=== PATIENT | male | born 1950 | race Caucasian/White ===

== ENCOUNTER 2024-04-20 12:49 | Day surgery (SDC) | payer MEDICARE ==
[2024-04-19 14:01] LABS: BASOPHILS % (AUTO) 0.5 % (0-1); EOSINOPHILS # (AUTO) 0.1 X10'3 (0-0.9); EOSINOPHILS % (AUTO) 1.5 % (0-6); LYMPHOCYTES # (AUTO) 1.3 X10'3 (1.1-4.8); LYMPHOCYTES % (AUTO) 16.7 % (21-51); MEAN CORPUSCULAR HEMOGLOBIN 31.4 PG (27.0-31.0); MEAN CORPUSCULAR HGB CONC 33.6 g/dL (33.0-36.5); MEAN CORPUSCULAR VOLUME 93.7 FL (78-98); MEAN PLATELET VOLUME 8.6 FL (7.4-10.4); MONOCYTES # (AUTO) 0.8 X10'3 (0-0.9); MONOCYTES % (AUTO) 9.6 % (2-12); NEUTROPHILS # (AUTO) 5.7 X10'3 (1.8-7.7); NEUTROPHILS % (AUTO) 71.7 % (42-75); PRE OP HEMATOCRIT 41.4 % (42.0-52.0); PRE OP HEMOGLOBIN 13.9 g/dL (14.0-17.9); PRE OP PLATELET COUNT 209 X10'3 (140-440); PRE OP WHITE BLOOD COUNT 7.9 10'3 (4.8-10.8); RED BLOOD COUNT 4.42 X10'6 (4.70-6.10); RED CELL DISTRIBUTION WIDTH 13.7 % (11.5-14.5)
[2024-04-19 14:17] LABS: ALBUMIN 3.8 G/DL (3.4-5.0); ALBUMIN/GLOBULIN RATIO 1.1 (1.1-1.5); ALKALINE PHOSPHATASE 43 IU/L (46-116); BLOOD UREA NITROGEN 18 MG/DL (7-18); BUN/CREATININE RATIO 19.4 (10.0-20.0); CALCIUM 9.2 MG/DL (8.5-10.1); CHLORIDE 106 MMOL/L (99-107); CREATININE 0.93 MG/DL (0.60-1.10); PRE OP ALT 18 U/L (30-65); PRE OP ANION GAP 6 (8-16); PRE OP AST 18 U/L (10-37); PRE OP BILIRUB, TOTAL 0.6 MG/DL (0.0-1.0); PRE OP GLUCOSE 98 MG/DL (70-104); PRE OP POTASSIUM 3.9 MMOL/L (3.4-5.1); PRE OP SODIUM 140 MMOL/L (135-145); TOTAL CARBON DIOXIDE 28.3 MMOL/L (24-32); TOTAL PROTEIN 7.2 G/DL (6.4-8.2); eGFR 80 ML/MIN
[2024-04-20] VITALS (8 sets, daily range): BP systolic 139–164; BP diastolic 81–90; PULSE 66–87; RESP 11–18; TEMP 98.2; O2SAT 92–98
[~2024-04-20] VITALS: Ht 177.8 cm; Wt 85.5 kg
[~2024-04-20 12:49] MED LIST: ASPI81TA52 PO; BUPIVAcaine/PF 2.5mg/ml (0.25%) 10ml vial ONE; FENO160T PO; FLO0.4C PO; HYDR25TA4 PO; LIDOcaine 1% 30ml preserv. free vial ONE; LOSA25TA41 PO
[2024-04-20] MEDS: ringers solution, lacted 1,000 ML IV SCH (14:05)
[2024-04-20] MEDS: clindamycin-Cleocin 900mg/D5W 50 ML IV ONE (14:06)
[2024-04-20] MEDS: famotidine 20mg tablet PO ONE (14:06)
[2024-04-20] MEDS: INDOCYANINE GREEN 25 MG/10 ML VIAL IV ONE (15:11)
[2024-04-20] MEDS ORDERED: sevoflurane 250ml liquid IH ONE (18:32)
[2024-04-20] MEDS ORDERED: morphine 2 MG/ML inj. syringe IV PRN (18:35)
[2024-04-20] MEDS ORDERED: meperidine/PF 25mg/ml syringe IV PRN ×3 (18:35)
[2024-04-20] MEDS ORDERED: acetaminophen 1,000mg/100ml IV 100 ML IV ONE (18:35)
[2024-04-20] MEDS ORDERED: labetalol 20mg/4ml (5mg/ml) syringe IV PRN (18:35)
[2024-04-20] MEDS ORDERED: ringers solution, lacted 1,000 ML IV SCH (18:35)
[2024-04-20] MEDS ORDERED: ondansetron/PF 4mg/2ml inj IV PRN (18:35)
[2024-04-20] MEDS ORDERED: hydrALAZINE 20mg/ml inj. IV PRN (18:35)
[2024-04-20] MEDS ORDERED: proCHLORperazine 10 MG/2 ml inj IV PRN (18:35)
[2024-04-20] MEDS ORDERED: morphine 4 MG/ML inj SYRINge IV PRN (18:35)
[2024-04-20] MEDS ORDERED: fentaNYL /PF 50mcg/ml 5ml ampule ONE (18:38)
[2024-04-20] MEDS ORDERED: midazolam 1 mg/ML 2ml injection ONE (18:38)
[2024-04-20] MEDS ORDERED: propofol inj 20 ML IV ONE (19:00)
[2024-04-20] MEDS ORDERED: rocuronium 10mg/ml inj IV ONE (19:00)
[2024-04-20] MEDS ORDERED: dexamethasone sod phosphate 4mg/ml inj. ONE (19:00)
[2024-04-20] MEDS ORDERED: LIDOcaine 2% (20mg/ml) 5ml vial ONE (19:00)
[2024-04-20] MEDS ORDERED: ondansetron/PF 4mg/2ml inj ONE (19:00)
[2024-04-20] MEDS: BUPIVAcaine 2.5mg/ml inj 50ml vial (contains preservative) SQ ONE (19:05)
[2024-04-20] MEDS ORDERED: glycopyrrolate 0.2mg/ml inj ONE (19:31)
[2024-04-20] MEDS ORDERED: neostigmine methylsulfate 1 MG/ML 10ml vial ONE (19:31)
[2024-04-20] MEDS: oxyCODONE/APAP 5-325mg tablet PO PRN (20:14)
== END 2024-04-20 20:32 | disposition home or self-care (01) ==
LOC: PAS 12:49
PROVIDERS: ATTEND Surgery
DX: K80.10 Calculus of gallbladder with chronic cholecystitis without obstruction (principal); I10 Essential (primary) hypertension; E78.5 Hyperlipidemia, unspecified; Z79.82 Long term (current) use of aspirin; Z79.899 Other long term (current) drug therapy; Z90.49 Acquired absence of other specified parts of digestive tract; Z88.0 Allergy status to penicillin; Z82.3 Family history of stroke; Z82.49 Family history of ischemic heart disease and other diseases of the circulatory system
CPT/HCPCS: 36415; 47563; 80053; 82948; 85025; A4215; A4618; A7000; J1100; J2001; J2250; J2405; J2704; J2710; J3010; J3490; J7030; J7120; Z7506; Z7508; Z7512; Z7610

== ENCOUNTER 2024-09-05 05:29 | Day surgery (SDC) | payer MEDICARE ==
[~2024-09-05] VITALS: Ht 177.8 cm; Wt 88.0 kg
[2024-09-05] VITALS (14 sets, daily range): BP systolic 122–143; BP diastolic 68–82; PULSE 60–71; RESP 11–16; TEMP 98.1; O2SAT 95–99
[~2024-09-05 05:29] MED LIST changes: -ASPI81TA52 PO; -BUPIVAcaine/PF 2.5mg/ml (0.25%) 10ml vial ONE; +CHOL10005 PO; -LIDOcaine 1% 30ml preserv. free vial ONE
[2024-09-05] MEDS ORDERED: famotidine 20mg tablet PO ONE (05:30)
[2024-09-05] MEDS ORDERED: ringers solution, lacted 1,000 ML IV SCH ×2 (05:30→08:15)
[2024-09-05] MEDS: VANCOMYCIN 1,500MG inj. 1,500 MG in normal saline 500ml IV soln 300 ML IV ONE (06:00)
[2024-09-05] MEDS ORDERED: bacitracin 15gm ointment TP ONE (06:40)
[2024-09-05] MEDS ORDERED: BUPIVAcaine 2.5mg/ml inj 50ml vial (contains preservative) ONE (06:42)
[2024-09-05] MEDS ORDERED: sevoflurane 250ml liquid IH ONE (07:08)
[2024-09-05 07:09] LABS: BASOPHILS % (AUTO) 0.7 % (0-1); EOSINOPHILS # (AUTO) 0.2 X10'3 (0-0.9); EOSINOPHILS % (AUTO) 3.7 % (0-6); LYMPHOCYTES # (AUTO) 1.2 X10'3 (1.1-4.8); LYMPHOCYTES % (AUTO) 21.1 % (21-51); MEAN CORPUSCULAR HEMOGLOBIN 32.1 PG (27.0-31.0); MEAN CORPUSCULAR HGB CONC 33.9 g/dL (33.0-36.5); MEAN CORPUSCULAR VOLUME 94.8 FL (78-98); MEAN PLATELET VOLUME 9.3 FL (7.4-10.4); MONOCYTES # (AUTO) 0.7 X10'3 (0-0.9); MONOCYTES % (AUTO) 12.2 % (2-12); NEUTROPHILS # (AUTO) 3.5 X10'3 (1.8-7.7); NEUTROPHILS % (AUTO) 62.3 % (42-75); PRE OP HEMATOCRIT 41.9 % (42.0-52.0); PRE OP HEMOGLOBIN 14.2 g/dL (14.0-17.9); PRE OP PLATELET COUNT 189 X10'3 (140-440); PRE OP WHITE BLOOD COUNT 5.6 10'3 (4.8-10.8); RED BLOOD COUNT 4.42 X10'6 (4.70-6.10)
[2024-09-05 07:10] LABS: ALBUMIN 3.6 G/DL (3.4-5.0); ALBUMIN/GLOBULIN RATIO 1.1 (1.1-1.5); ALKALINE PHOSPHATASE 42 IU/L (46-116); BLOOD UREA NITROGEN 20 MG/DL (7-18); BUN/CREATININE RATIO 18.7 (10.0-20.0); CALCIUM 8.9 MG/DL (8.5-10.1); CHLORIDE 107 MMOL/L (99-107); CREATININE 1.07 MG/DL (0.60-1.10); PRE OP ALT 20 U/L (30-65); PRE OP ANION GAP 8 (8-16); PRE OP AST 18 U/L (10-37); PRE OP BILIRUB, TOTAL 0.6 MG/DL (0.0-1.0); PRE OP GLUCOSE 106 MG/DL (70-104); PRE OP POTASSIUM 3.8 MMOL/L (3.4-5.1); PRE OP SODIUM 140 MMOL/L (135-145); TOTAL CARBON DIOXIDE 24.6 MMOL/L (24-32); TOTAL PROTEIN 6.8 G/DL (6.4-8.2); eCRCL 63 ML/MIN; eGFR 68 ML/MIN
[2024-09-05] MEDS ORDERED: BUPIVACAINE liposomal/PF 13.3 MG/ML vial IM ONE (07:12)
[2024-09-05] MEDS ORDERED: BUPIVAcaine/PF 5 mg/ml 10ml ONE (07:12)
[2024-09-05] MEDS ORDERED: fentaNYL/PF 50MCG/1 ML 2ML syringe ONE ×2 (07:17→08:25)
[2024-09-05] MEDS ORDERED: midazolam 1 mg/ML 2ml injection ONE (07:17)
[2024-09-05] MEDS ORDERED: succinylcholine 20mg/ml inj IV ONE (07:51)
[2024-09-05] MEDS ORDERED: ROPIVAcaine 0.5% (5mg/ml) 30ml vial ONE (07:51)
[2024-09-05] MEDS ORDERED: dexamethasone sod phosphate 4mg/ml inj. ONE (07:52)
[2024-09-05] MEDS ORDERED: LIDOcaine 2% (20mg/ml) 5ml vial ONE (07:52)
[2024-09-05] MEDS ORDERED: ondansetron/PF 4mg/2ml inj ONE (07:52)
[2024-09-05] MEDS ORDERED: propofol inj 20 ML IV ONE (07:52)
[2024-09-05] MEDS ORDERED: ROPIVAcaine 0.2% (10 MG/5 ML) BOLUS INJECTION POPLITEAL PRN (08:15)
[2024-09-05] MEDS ORDERED: enalaprilat dihydrate 2.5mg/2ml vial IV PRN (08:15)
[2024-09-05] MEDS ORDERED: fentaNYL/PF 50MCG/1 ML 2ML syringe IV PRN ×2 (08:15)
[2024-09-05] MEDS ORDERED: morphine 2 MG/ML inj. syringe IV PRN (08:15)
[2024-09-05] MEDS ORDERED: morphine 4 MG/ML inj SYRINge IV PRN (08:15)
[2024-09-05] MEDS ORDERED: ondansetron/PF 4mg/2ml inj IV PRN (08:15)
[2024-09-05] MEDS ORDERED: hydrALAZINE 20mg/ml inj. IV PRN (08:15)
[2024-09-05] MEDS: ROPIVAcaine 0.2%/PF PUMP/bolus 545 ML POPLITEAL SCH (09:29)
== END 2024-09-05 10:48 | disposition home or self-care (01) ==
LOC: PRE-OP 05:29
PROVIDERS: ATTEND Podiatrist Foot & Ankle Surgery
DX: S86.011A Strain of right Achilles tendon, initial encounter (principal); G89.18 Other acute postprocedural pain; I10 Essential (primary) hypertension; Z79.82 Long term (current) use of aspirin; Z79.891 Long term (current) use of opiate analgesic; Z79.899 Other long term (current) drug therapy; Z90.49 Acquired absence of other specified parts of digestive tract; Z88.0 Allergy status to penicillin; X58.XXXA Exposure to other specified factors, initial encounter; Y93.89 Activity, other specified; Y92.89 Other specified places as the place of occurrence of the external cause; Y99.8 Other external cause status
CPT/HCPCS: 27650; 36415; 64445; 64447; 80053; 85025; A4215; A4618; A6222; A6253; A6402; A6449; A7000; C1713; C1763; C9290; J0131; J0330; J0665; J1100; J2003; J2250; J2405; J2704; J2795; J3010; J3370; J3490; J7030; J7040; J7120; Z7506; Z7508; Z7512; Z7610